=== PATIENT | female | born 1960 | race Caucasian/White ===

== ENCOUNTER 2017-04-25 00:10 | Emergency (ER) | payer OTHER ==
[2017-04-25] MEDS ORDERED: morphine CARPU-JECT 4 MG/1 ML DISP.SYRIN IVPUSH ONE ×2 (00:24→01:23)
--- NOTE | 2017-04-25 01:15 | PDOC ---
History of Present Illness - General Stated Complaint: LEG FRACTURE Time Seen by Provider: 04/25/17 00:23 History Source: Patient, EMS Exam Limitations: No Limitations - History of Present Illness Initial Comments: 04/25/17 00:37 The patient is a 56F with a PMH of DM who presents to the ED via EMS after fracturing her R leg. The patient states that she began to feel hypoglycemic as she was grabbing her juice and tripped over her dog. No LOC, no head trauma. On 81mg asa. EMS was called and they stated that they did not see any open fracture but there is a questionable lac on the distal leg. All: none Past History - Past Medical History Allergies/Adverse Reactions: Allergies Allergy/AdvReac Type Severity Reaction Status Date / Time No Known Allergies Allergy Verified 04/25/17 00:37 Home Medications: Ambulatory Orders Insulin Glargine,Hum.rec.anlog [Lantus Solostar PEN (NF)] 11 units SQ HS Insulin Lispro [Humalog] 8 - 11 unit SQ AC 04/25/17 Losartan Potassium 0 mg PO DAILY 04/25/17 Review of Systems - Review of Systems Able to Perform ROS?: Yes Is the patient limited Sri Lankan proficient: No Constitutional: Yes: Chills. No: Fever Respiratory: No: Shortness of Breath Cardiac (ROS): No: Chest Pain ABD/GI: Yes: Other (abd pain). No: Nausea, Vomiting Musculoskeletal: Yes: Joint Pain, Muscle Pain, Other (broken leg) Neurological: No: Numbness, Tingling, Weakness *Physical Exam - Physical Exam General Appearance: Yes: Nourished, Appropriately Dressed, Mild Distress HEENT: positive: Normal Voice, Hearing Grossly Normal Respiratory/Chest: positive: Lungs Clear, Normal Breath Sounds. negative: Chest Tender, Respiratory Distress, Accessory Muscle Use, Labored Respiration Cardiovascular: positive: Regular Rhythm, S1, S2, Tachycardia. negative: Diastolic Murmur, Systolic Murmur Vascular Pulses: Dorsalis-Pedis (R): 2+, Doralis-Pedis (L): 2+ Gastrointestinal/Abdominal: positive: Flat, Soft. negative: Tender Extremity: positive: Normal Capillary Refill, Normal Inspection, Other (R leg deviated laterally skilled nursing down leg). negative: Cyanosis, Swelling, Calf Tenderness Integumentary: positive: Dry, Warm, Other (5cmx1.5cm lac on distal leg, not at the same spot as fx) Neurologic: positive: Normal Response. negative: Numbness, Sensory Deficit ( Neurovascularly intact) Procedures - Splinting Splint Location: Right: Foot, Ankle, Knee Pre-Proc Neuro Vasc Exam: normal Hand-Made Type: orthoglass Splint Type: Yes: Long Leg Post-Proc Neuro Vasc Exam: normal Paul Bandage: 3", 4" Sling: No Post splint xray: Yes (CT) ED Treatment Course - LABORATORY CBC & Chemistry Diagram: 04/25/17 01:20 04/25/17 01:20 Medical Decision Making - Medical Decision Making 04/25/17 03:14 XR shows proximal fibular fracture and at least 1 fracture in mid-leg. Will do posterior splint and send to CT. 04/25/17 03:41 Posterior splint and u-splint placed. Will send to CT with 2 ativan for patient comfort. 04/25/17 04:05 Dr. Montes feels that this case should be transferred to a trauma center for an open fracture. Pending CT. 04/25/17 05:25 CT shows open fracture on preliminary read. [facility] has been contacted for transfer. 04/25/17 06:24 Transfer orders have been placed for [facility]. *DC/Admit/Observation/Transfer Diagnosis at time of Disposition: Fracture - Discharge Dispostion Disposition: TRANSFER ACUTE CARE/OTHER HOSP Condition at time of disposition: Stable Admit: Yes - Referrals Referrals: STAFF,NOT ON [Primary Care Provider] -
[2017-04-25] MEDS ORDERED: DEXTROSE 5%-0.45% SALINE 1,000 ML IV SCH (01:30)
[2017-04-25 01:33] LABS: EOSINOPHIL 3.2 % (0-4.5); MCH 32.6 pg (25.7-33.7); MCHC 33.8 g/dl (32.0-36.0); MEAN CELL VOLUME 96.5 fl (80-96); MEAN PLT VOLUME 9.7 fl (7.5-11.1); NEUTROPHILS 64.6 % (42.8-82.8); PLATELET COUNT 164 K/MM3 (134-434); RDW 13.3 % (11.6-15.6); WHITE BLOOD COUNT 5.4 K/mm3 (4.0-10.0)
--- NOTE | 2017-04-25 01:37 | PDOC ---
Attending Attestation - Resident Resident Name: Travis Lay - ED Attending Attestation I have performed the following: I have examined & evaluated the patient, The case was reviewed & discussed with the resident, I agree w/resident's findings & plan, Exceptions are as noted - HPI HPI: 04/28/17 19:34 Pt had a hypoglycemic event, resulting in a fall. Pt presents with pain and deformity to her right lower extremity. - Physicial Exam PE: 04/25/17 01:35 *Physical Exam General Appearance: Yes: Appropriately Dressed. No: Apparent Distress, Intoxicated HEENT: positive: EOMI, COLLIN, Normal ENT Inspection, Normal Voice, TMs Normal, Pharynx Normal. negative: Pale Conjunctivae, Photophobia, Scleral Icterus (R), Scleral Icterus (L) Neck: positive: Trachea midline, Normal Thyroid, Supple. negative: Tender, Rigid, Carotid bruit, Stridor, Lymphadenopathy (R), Lymphadenopathy (L), Thyromegaly Respiratory/Chest: positive: Lungs Clear, Normal Breath Sounds. negative: Chest Tender, Respiratory Distress, Accessory Muscle Use, Labored Respiration, RES, Crackles, Rales, Rhonchi, Stridor, Wheezing, Dullness Cardiovascular: positive: Regular Rhythm, Regular Rate, S1, S2. negative: Edema , JVD, Murmur, Bradycardia, Tachycardia Vascular Pulses: Dorsalis-Pedis (R): 2+, Doralis-Pedis (L): 2+ Gastrointestinal/Abdominal: positive: Normal Bowel Sounds, Flat, Soft. negative : Tender, Organomegaly, Pulsatile Mass, Increased Bowel Sounds, Decreased BS, Distended, Guarding, Rebound, Hernia, Hepatomegaly, Spleenomegaly Lymphatic: negative: Adenopathy, Tenderness Musculoskeletal: positive: Normal Inspection. negative: CVA Tenderness, Decreased Range of Motion Extremity: positive: deformity to right tib/fib region laterally Normal Capillary Refill, Normal Inspection, Normal Range of Motion, Pelvis Stable. negative: Tender, Pedal Edema, Swelling, Erythema Integumentary: positive: Normal Color, Dry, Warm. negative: Cyanotic, Erythema , Jaundice, Rash Neurologic: positive: forensic dna analyst II-XII NML intact, Fully Oriented, Alert, Normal Mood/ Affect, Motor Strength 5/5. negative: EOM Palsy, Facial Droop, Sensory Deficit - Medical Decision Making 04/25/17 05:54 Pt pending possible to [facility] as ortho believe that pt can't be treated here properly for surgical wash and treatmente of her open fracture to right tib/ fib. 04/25/17 06:18 Pt accepted to [facility] to go to ER by Dr. Valles. Discharge Disposition - Diagnosis Fracture, Open fracture, Fracture of right tibia and fibula - Discharge Dispostion Disposition: TRANSFER ACUTE CARE/OTHER HOSP Condition at time of disposition: Stable - Referrals Referrals: STAFF,NOT ON [Primary Care Provider] - - Transfer to Acute Care Facility Receiving Facility: [facility]. (accepted by Dr. Valles to ER)
[2017-04-25] MEDS ORDERED: HYDROmorphone HCL CARPU-JECT 1 MG/1 ML DISP.SYRIN ONE ×2 (01:39→03:21)
[2017-04-25 01:43] LABS: INR 0.91 (0.82-1.09)
[2017-04-25] MEDS ORDERED: HYDROmorphone HCL CARPU-JECT 1 MG/1 ML DISP.SYRIN IVPUSH ONE ×2 (01:47→03:11)
[2017-04-25 01:51] VITALS: BMI 25.7
[2017-04-25 01:55] LABS: ALBUMIN 3.4 g/dl (3.4-5.0); ALK PHOS 280 U/L (45-117); ANION GAP 9 (8-16); BILIRUBIN,TOTAL 0.2 mg/dL (0.2-1.0); CALCIUM 8.8 mg/dL (8.5-10.1); CO2 26 mmol/L (21-32); CREATININE 0.9 mg/dL (0.55-1.02); GLUCOSE,RANDOM 64 mg/dL (74-106); MAGNESIUM 2.4 mg/dL (1.8-2.4); SGOT/AST 96 U/L (15-37); SGPT/ALT 82 U/L (12-78); TOT PROT 6.3 g/dl (6.4-8.2)
[2017-04-25] MEDS ORDERED: DEXTROSE 50%-WATER - 25 GM/50 ML VIAL IVPUSH ONE (02:08)
[2017-04-25] MEDS ORDERED: AMPICILLIN NA/SULBACTAM NA 3 GM in SODIUM CHLORIDE 100 ML IVPB ONE (03:11)
[2017-04-25] MEDS ORDERED: morphine CARPU-JECT 4 MG/1 ML DISP.SYRIN IVPUSH PRN (04:05)
[2017-04-25] MEDS ORDERED: DIPHTH,PERTUSS(ACELL),TET 0.5 ML DISP.SYRIN IM ONE (04:07)
--- NOTE | 2017-04-25 04:08 | HP ---
Admitting History and Physical - Admission History of Present Illness: 56yo F with significant history of DM on insulin presenting to the ER with R leg fracture with laceration on distal part of leg. Pt was experiencing a hypoglycemic episode when she went to go get juice from her fridge. She subsequently tripped on her dog and, when she landed, had a gross deformity of her R leg. Pt did not loose consciousness, did not hit her head, and denies any urinary incontinence or post-ictal state. Pt is currently in posterior/u-splint and states she was able to move her toes when asked to do so. Pt denies any other symptoms. ER course notable for: 1) Lower extremity XR - Multiple fractures in R fibula and Tibia fx; official read pending 2) Posterior splint and U-splint applied 3) Ampicillin x1 dose given due to laceration 4) CMP revealing elevated liver enzymes 5) Glucose of 64, D5 initiated 6) Ortho consulted History Source: Patient Limitations to Obtaining History: No Limitations - Past Medical History Endocrine: Yes: Diabetes Mellitus - Smoking History Smoking history: Former smoker Have you smoked in the past 12 months: No If you are a former smoker, when did you quit?: 25 years ago - Alcohol/Substance Use Hx Alcohol Use: Yes (socially) - Social History History of Recent Travel: No Home Medications - Allergies Allergies/Adverse Reactions: Allergies Allergy/AdvReac Type Severity Reaction Status Date / Time No Known Allergies Allergy Verified 04/25/17 00:37 - Home Medications Home Medications: Ambulatory Orders Insulin Glargine,Hum.rec.anlog [Lantus Solostar PEN (NF)] 11 units SQ HS Insulin Lispro [Humalog] 8 - 11 unit SQ AC 04/25/17 Losartan Potassium 0 mg PO DAILY 04/25/17 Physical Examination Vital Signs: Vital Signs Temperature Pulse Rate 83 04/25/17 00:30 Respiratory Rate 18 04/25/17 00:30 Blood Pressure 146/79 04/25/17 00:30 O2 Sat by Pulse Oximetry (%) 99 04/25/17 00:30 Constitutional: Yes: Mild Distress Eyes: Yes: Conjunctiva Clear, EOM Intact, PERRL Neck: Yes: Trachea Midline Cardiovascular: Yes: Tachycardia (regular rhythm), S1, S2. No: Murmur Respiratory: Yes: Regular, CTA Bilaterally. No: Rales, Rhonchi, SOB, Wheezes Gastrointestinal: Yes: Normal Bowel Sounds, Soft. No: Hepatomegaly, Splenomegaly, Tenderness Extremities: Yes: Other (R lower extremity in immobilizer cast; per ER able to move distal extremities; sensation intact distally; per ER distal pulses intact and laceration about 4x1cm distal to fractures on leg seen on XR) Neurological: Yes: Alert, Oriented Psychiatric: Yes: Alert, Oriented Labs: CBC, BMP 04/25/17 01:20 04/25/17 01:20 Assessment/Plan 56yo F sig hx of insulin dependent DM experiencing hypoglycemic episode resulting in multiple fractures of R fibula with a Tibia Fx. Immobilizer cast applied, D5 in ER given for hypoglycemia, ampicillin x1dose given; open laceration 4x1cm 1) R fibular and R Tibia fracture --Open laceration 4x1 distal to fractures seen on XR --Ortho consulted --Pain management: received dilaudid in ER for multiple doses; Morphine Injection 4mg q4 PRN --Most likely will need surgical intervention for closure of laceration and fractures; defer to ortho team --CT lower extremity revealing open fracture of tibia and fibula; official read pending 2) IDDM --Levemir 17U HS --Novolog 5U TID boluses --SSI for inbetween coverage if necessary --BGM ACHS --Will give 8 of Levemir in morning due to lack of taking medication tonight and NPO for possible procedure tomorrow 3) Elevated liver enzymes --Suspect patient drinks alcohol more than described as "socially" --No abd tenderness or hepatomegaly --Will f/u; eventually need Liver US FEN: Fluids: D5W for hypoglycemia, will switch to NS when at adequate levels Electrolyte abnormalities: None Nutrition: NPO for possible procedure Dispo: Admit to M/S; follow with ortho plan Visit type - Emergency Visit Emergency Visit: Yes Care time: The patient presented to the Emergency Department on the above date and was hospitalized for further evaluation of their emergent condition. - New Patient This patient is new to me today: Yes Date on this admission: 04/25/17 - Critical Care Critical Care patient: No
--- NOTE | 2017-04-25 05:44 | PN ---
Teaching Attending Note Name of Resident: Ryan Russell ATTENDING PHYSICIAN STATEMENT I saw and evaluated the patient. I reviewed the resident's note and discussed the case with the resident. I agree with the resident's findings and plan as documented. SUBJECTIVE: 56 yo female admitted to general medical floor with multiple acute tib/fib fractures following a fall at home patient attributes to "hypoglycemia episode" . Denies syncope or presyncope symptomatology, denies CP, palpitations, SOB, abdominal pain, GI or complaints. OBJECTIVE: - Vital Signs BP: 146/79 HR: 83 RR: 18 spO2: 99% on RA - Physical Examination General: Mild distress, depressed sensorium in setting of multiple opioid doses in ED HEENT: Atraumatic, no oropharyngeal lesions Neck: No JVD or thyromegaly CV: RRR, S1 and S2 Pulm: CTA anteriorly Abd: Soft, NTTP, ND, BS+ ; No hepatomegaly appreciated Ext: Obvious deformity to RLE w/ splint in place - Imaging RLE Radiographs reviewed CXR reviewed - Labs BUN/Cr: 29/0.9 H/H 10.9/32.3 w/ macrocytic profile ; Plt 164 AST/ALT 96/82 , ALP 280 , Laila bili ASSESSMENT: s/p Traumatic fall w/ subsequent tib/fib fractures and laceration Acute Transaminitis Macrocytic Anemia Pre-renal Azotemia Insulin Dependent DM-II Essential - Controlled PLAN: Admit to med/surg floor for IV pain management while awaiting Orthopedic Surgery evaluation. Basal and SSI while inpatient, Monitor for hypoglycemia ; Continue outpatient BP regimen IVF hydration overnight w/ LR Pain management w/ PO opiate standing and IV Morphine q2h prn Order GGT ; Serum EtOH level ; UDS and UA Order Abdominal U/S w/ doppler Check B12, Folate, Fe levels, reticulocyte indices DVT PPx w/ SC Heparin DISPOSITION: Anticipate discharge in >48h once orthopedics has evaluated/treated and PT/OT evaluation has been completed.
[2017-04-25] MEDS ORDERED: Insulin (LOG) Aspart 100 UNITS/ML VIAL SQ SCH ×2 (06:00→07:00)
[2017-04-25 06:22] VITALS: BP 141/90; PULSE 95; TEMP 98.4
[2017-04-25] MEDS ORDERED: INSULIN (NOVOLOG) ASPART 100 UNITS/ML 10ML VIAL ONE (06:50)
[2017-04-25] MEDS ORDERED: morphine CARPU-JECT 4 MG/1 ML DISP.SYRIN ONE (06:56)
[2017-04-25] MEDS ORDERED: INSULIN SLIDING SCALE (NOVOLOG) 1 VIAL SQ SCH (07:00)
[2017-04-25] MEDS ORDERED: INSULIN DETEMIR 100 UNITS/ML MDV SQ ONE (09:00)
[2017-04-25] MEDS ORDERED: HEPARIN NA (PORCINE) 5,000 UNITS/ML 1ML VIAL SQ SCH (10:00)
[2017-04-25] MEDS ORDERED: INSULIN DETEMIR 100 UNITS/ML MDV SQ SCH (22:00)
== END 2017-04-25 07:15 | disposition short-term general hospital (02) ==
LOC: JER 00:10 → UNDOADMIN 03:42 → JERBED 03:42 → UNDOADMIN 03:48 → JERBED 03:48 → JER 07:15
PROC: 2W3LX1Z Immobilization of Right Lower Extremity using Splint (ICD-10-PCS; principal; 2017-04-25)
PROC: 3E033NZ Introduction of Analgesics, Hypnotics, Sedatives into Peripheral Vein, Percutaneous Approach (ICD-10-PCS; 2017-04-25)
PROC: 3E03329 Introduction of Other Anti-infective into Peripheral Vein, Percutaneous Approach (ICD-10-PCS; 2017-04-25)
PROC: 3E033GC Introduction of Other Therapeutic Substance into Peripheral Vein, Percutaneous Approach (ICD-10-PCS; 2017-04-25)
PROC: 3E013VG Introduction of Insulin into Subcutaneous Tissue, Percutaneous Approach (ICD-10-PCS; 2017-04-25)
PROC: 3E0234Z Introduction of Serum, Toxoid and Vaccine into Muscle, Percutaneous Approach (ICD-10-PCS; 2017-04-25)
DX: S82.831B Other fracture of upper and lower end of right fibula, initial encounter for open fracture type I or II (principal); S82.391B Other fracture of lower end of right tibia, initial encounter for open fracture type I or II; W01.0XXA Fall on same level from slipping, tripping and stumbling without subsequent striking against object, initial encounter; Y93.89 Activity, other specified; Y92.000 Kitchen of unspecified non-institutional (private) residence as the place of occurrence of the external cause; E11.9 Type 2 diabetes mellitus without complications; Z79.4 Long term (current) use of insulin
CPT/HCPCS: 29505; 36415; 71010-TC; 73590-TC-RT; 73610-TC-RT; 73630-TC-RT; 73700-TC-RT; 80053; 83735; 85025; 85610; 86850; 86900; 86901; 90471; 90715; 96365; 96372; 96375; 96376; 99285-25

== ENCOUNTER 2017-12-09 07:32 | Observation (INO) | payer OTHER ==
--- NOTE | 2017-12-09 08:03 | PDOC ---
History of Present Illness - General Chief Complaint: Weakness Stated Complaint: weakness Time Seen by Provider: 12/09/17 07:33 History Source: Patient Exam Limitations: No Limitations - History of Present Illness Initial Comments: 12/09/17 07:48 The patient is a 57F with a PMH of HTN and DM who presents to the ER after having an episode of hypoglycemia. The patient states that she woke up around 0600 this morning and felt shaky with slurred speech. She states that she's had episodes of hypoglycemia in the past but none like this one. She states that she last felt well around 0988-1526 this morning. When she woke up at 0600, she did not feel right and had slurred speech. She sat up in bed and checked her BG and it was 66. She ate a sandwich and drank orange juice and felt better. EMS had 108 BG then repeat was 227. She states her symptoms have completely resolved and she is fine. tPA Exclusion Checklist 0-3hr - Time Elapsed Date last known well: 12/09/17 Time last known well: 02:00 Elaspsed time: Day(s) and 10 Hour(s) and 16 Minutes - Thrombolytic Therapy Candidate Is the patient eligible for Thrombolytic Therapy?: No - Exclusion Criteria 0-3hr SBP greater than 185 or DBP greater than 110mmHg despite tx: No Recent IC/spinal surgery,head trauma or stroke w/in last 3mo: No Hx of previous IC hemorrhage, IC neoplasm, AVM or aneurysm: No Active internal bleeding: No Blding diathesis(low plt ct, inc PTT,INR>1.7 or use of NOAC): No Symptoms suggest subarachnoid hemorrhage: No CT demonstrates multilobar infarct(>1/3 cerebral hemiphere): No Arterial puncture at noncompressible site in previous 7 days: No Blood glucose concentration less than 50mg/dL (2.7mmol/L): No - Relative Exclusion Criteria 0-3h Life expectancy <1yr/severe co-morbid illness/FIELD SERVICER on admit: No : No Patient/family refused: No Rapid improvement: Yes Stroke severity too mild: Yes Recent acute DE (w/in previous 3 months): No Seizure at onset with postictal residual neuro impairments: No Major surgery or serious trauma w/in previous 14 days: No Recent GI or hemorrhage (w/in previous 21 days): No - Ineligibility reason(s) Reasons No tPA given: See reason(s) noted above (Symptoms have completely resolved and out of TPA window) NIH Stroke Scale - Last Known Well Date/Time & Onset Date Last Known Well: 12/09/17 Time Last Known Well: 02:00 - Initial Evaluation Level of consciousness: Alert Ask patient the month and their age: Answers both correctly Ask patient to open & close eyes; make fist and let go: Obeys both correctly Best gaze (horizontal eye movement): Normal Visual field testing: No visual field loss Facial paresis (Show teeth/raise eyebrows/close eyes tight): Normal symmetrical movement Motor Function: Left Arm: Normal Motor Function: Right Arm: Normal (extends arm 90 (or 45) degrees for 10 seconds without drift Motor Function: Left Leg: Normal (extends leg 30 degrees for 5 seconds without drift) Motor Function: Right Leg: Normal (extends leg 30 degrees for 5 seconds without drift) Limb Ataxia: No ataxia Sensory(Use pinprick test arms,legs,trunk,face/side to side): Normal Best language (Describe picture, name items, read sentences): No Aphasia Dysarthria (read several words): Normal articulation Extinction and Inattention: No abnormality - Total Score NIH Stroke Scale Score: 0 Past History - Past Medical History Allergies/Adverse Reactions: Allergies Allergy/AdvReac Type Severity Reaction Status Date / Time No Known Allergies Allergy Verified 12/09/17 07:45 Home Medications: Ambulatory Orders Insulin Glargine,Hum.rec.anlog [Lantus Solostar PEN (NF)] 11 units SQ HS Insulin Lispro [Humalog] 0 unit SQ AC 04/25/17 Losartan Potassium 25 mg PO DAILY 12/09/17 Anemia: No Asthma: No Cancer: No Cardiac Disorders: No CVA: No COPD: No DVT: No Dementia: No Diabetes: Yes Dialysis: No GI Disorders: No Disorders: No HTN: Yes Hypercholesterolemia: No Kidney Stones: No Liver Disease: No Psychiatric Problems: No Seizures: No Thyroid Disease: No Lung CA: No - Surgical History Abdominal Surgery: No Appendectomy: No Cardiac Surgery: No Cholecystectomy: No Gastric Stapling: No GI Surgery: No Lung Surgery: No Neurologic Surgery: No - Suicide/Smoking/Psychosocial Hx Smoking History: Former smoker Have you smoked in the past 12 months: No If you are a former smoker, when did you quit?: 25 years ago Hx Alcohol Use: Yes (socially) Drug/Substance Use Hx: No Substance Use Type: Alcohol Review of Systems - Review of Systems Able to Perform ROS?: Yes Comments:: 12/09/17 08:46 GENERAL/CONSTITUTIONAL: No fever or chills. No weakness. HEAD, EYES, EARS, NOSE AND THROAT: No change in vision. No ear pain or discharge. No sore throat. CARDIOVASCULAR: No chest pain, palpitations, or lightheadedness. RESPIRATORY: No cough, wheezing, shortness of breath, or hemoptysis. GASTROINTESTINAL: No nausea, vomiting, diarrhea, constipation, or abdominal pain. GENITOURINARY: No dysuria, frequency, hematuria, or change in urination. MUSCULOSKELETAL: No joint or muscle swelling or pain. No neck or back pain. SKIN: No rash or lesions. NEUROLOGIC: Positive for shakiness and resolved slurred speech. No headache, numbness, tingling, weakness, loss of consciousness, or change in strength/ sensation. ENDOCRINE: No increased thirst. No abnormal weight change. HEMATOLOGIC/LYMPHATIC: No anemia, easy bleeding, or history of blood clots. ALLERGIC/IMMUNOLOGIC: No hives or skin allergy. Is the patient limited Bur[place]ian proficient: No *Physical Exam - Physical Exam Comments: 12/09/17 08:46 GENERAL: Well developed, well nourished. Awake and alert. No acute distress. HEENT: Normocephalic, atraumatic. Hearing grossly normal. Moist mucous membranes. PERRLA, EOMI. No conjunctival pallor. Sclera are non-icteric. Oropharynx is clear. NECK: Supple. Full ROM. No JVD. CARDIOVASCULAR: Regular rate and rhythm. No murmurs, rubs, or gallops. PULMONARY: No evidence of respiratory distress. Lungs clear to auscultation bilaterally. No wheezing, rales or rhonchi. ABDOMINAL: Soft. Non-tender. Non-distended. No rebound or guarding. GENITOURINARY: No CVA tenderness bilaterally. MUSCULOSKELETAL: Normal range of motion at all joints. No bony deformities or tenderness. EXTREMITIES: No cyanosis. No clubbing. No edema. No calf tenderness. SKIN: Warm and dry. Normal capillary refill. No rashes. No jaundice. NEUROLOGICAL: Alert, awake, appropriate. Cranial nerves 2-12 intact. No deficits to light touch and temperature in face, upper extremities and lower extremities. No motor deficits in the in face, upper extremities and lower extremities. Finger to nose normal bilaterally. Normal speech. Gait is normal without ataxia. PSYCHIATRIC: Cooperative. Good eye contact. Appropriate mood and affect. ED Treatment Course - LABORATORY CBC & Chemistry Diagram: 12/09/17 08:12 12/09/17 08:12 Medical Decision Making - Medical Decision Making 12/09/17 08:47 The patient is a 57F with a PMH of DM and HTN who presents after a questionable hypoglycemic vs TIA episode. Due to the unclear picture and delayed arrival, the patient was not a candidate for a code briceno activation. Her symptoms have totally resolved and is not a candidate for TPA with an NIHSS of 0. However, will follow stroke protocol and admit for stroke/TIA workup. 12/09/17 12:[address] head negative. I have endorsed the patient to Dr. Maria for admission for Dr. Garcia. Will go to stroke obs floor. *DC/Admit/Observation/Transfer Diagnosis at time of Disposition: TIA (transient ischemic attack) Qualifiers: Transient cerebral ischemia type: unspecified Qualified Code(s): G45.9 - Transient cerebral ischemic attack, unspecified - Discharge Dispostion Condition at time of disposition: Stable Admit: Yes - Referrals - Patient Instructions - Post Discharge Activity
[2017-12-09 08:08] VITALS: BMI 24.3
[2017-12-09] MEDS ORDERED: SODIUM CHLORIDE 1,000 ML IV SCH ×2 (08:15→14:30)
[2017-12-09 08:30] LABS: BASO % 0.3 % (0-2.0); EOS % 0.2 % (0-4.5); HEMOGLOBIN 10.9 GM/dL (10.7-15.3); LYMPH % 10.6 % (8-40); MCH 31.8 pg (25.7-33.7); MEAN CELL VOLUME 93.6 fl (80-96); MEAN PLT VOLUME 10.1 fl (7.5-11.1); MONO % 8.8 % (3.8-10.2); NEUT % 80.1 % (42.8-82.8); PLATELET COUNT 162 K/MM3 (134-434); RBC 3.42 M/mm3 (3.60-5.2); RDW 13.2 % (11.6-15.6); WHITE BLOOD COUNT 7.1 K/mm3 (4.0-10.0)
[2017-12-09 08:34] LABS: URINE APPEARANCE SLCLOUDY; URINE BILIRUBIN NEGATIVE (<2.0 mg/dL); URINE BLOOD NEGATIVE (NEGATIVE); URINE COLOR LTYELLOW; URINE GLUCOSE (UA) 3+ (NEGATIVE); URINE KETONE TRACE (NEGATIVE); URINE NITRITE NEGATIVE (NEGATIVE); URINE PROTEIN NEGATIVE (NEGATIVE); URINE UROBILINOGEN NEGATIVE mg/dL (0.2-1.0)
[2017-12-09 08:50] LABS: URINE LEUK ESTERASE 2+ (NEGATIVE)
[2017-12-09 08:56] LABS: EPI CELLS FEW /HPF (FEW); URINE BACTERIA RARE /hpf (NONE SEEN); URINE HYALINE CAST 9 /lpf; URINE MUCUS RARE
[2017-12-09 09:01] LABS: ALBUMIN 3.4 g/dl (3.4-5.0); ANION GAP 10 (8-16); BILIRUBIN,TOTAL 0.3 mg/dL (0.2-1.0); BLOOD UREA NITROGEN 34 mg/dL (7-18); CALCIUM 8.1 mg/dL (8.5-10.1); CHLORIDE 100 mmol/L (98-107); CO2 25 mmol/L (21-32); CREATININE 1.3 mg/dL (0.55-1.02); SGOT/AST 79 U/L (15-37); SGPT/ALT 122 U/L (12-78); SODIUM 135 mmol/L (136-145); TOT PROT 6.3 g/dl (6.4-8.2)
[2017-12-09 09:02] LABS: ALK PHOS 429 U/L (45-117)
[2017-12-09 09:16] LABS: GLUCOSE,RANDOM 363 mg/dL (74-106)
[2017-12-09] MEDS ORDERED: INSULIN REGULAR HUMAN 100 UNITS/ML *VIAL SQ ONE (09:21)
[2017-12-09 09:42] LABS: INR 0.89 (0.82-1.09); PROTHROMBIN TIME (PATIENT) 10.1 SEC (9.98-11.88)
[2017-12-09 09:48] LABS: CHOLESTEROL 180 mg/dL (50-200); LDL CHOLESTEROL (ONLY SJRH) 80 mg/dL (5-100)
[2017-12-09 09:50] LABS: HDL CHOLESTEROL 72 mg/dL (40-60); TRIGLYCERIDES 191 mg/dL (35-160)
[2017-12-09] MEDS ORDERED: INSULIN REGULAR HUMAN 100 UNITS/ML *VIAL ONE ×2 (10:01→13:29)
--- NOTE | 2017-12-09 10:20 | PDOC ---
Attending Attestation - Resident Resident Name: MartykazmanuelaTravis - ED Attending Attestation I have performed the following: I have examined & evaluated the patient, The case was reviewed & discussed with the resident, I agree w/resident's findings & plan, Exceptions are as noted - HPI HPI: 12/09/17 10:17 57-year-old female with history of insulin-dependent diabetes presents with about 30 minute episode of slurred speech upon awakening at 6 AM. The patient was at her baseline at 2 AM after going to sleep around midnight, awoke at 6 AM with severely slurred speech but no aphasia or focal weakness. Her glucose at that time was 60 so she started drinking some orange juice, by the time EMS arrived it was 108 and her symptoms were improving. Typically, patient states she is not symptomatic at glucose levels of 60, and she has never had slurred speech with her hypoglycemia in the past. Now feels completely back to normal. - Physicial Exam PE: 12/09/17 10:18 Vital signs normal NEURO: Mental status: The patient is alert and oriented x3. Cranial nerves: Cranial nerves II through XII are intact Motor: The upper extremities are 5 over 5 in all muscle groups. The lower extremities are 5 over 5 in all muscle groups. No pronator drift. Sensation: Sensation is intact to light touch throughout. Cerebellar: [id number] is normal in both upper extremities. Heel-knee- perez is normal in both lower extremities. Reflexes: 2+ and symmetric in the upper and lower extremities. Gait: Normal. Heel and toe walking are normal. Tandem gait is normal. - Medical Decision Making 12/09/17 10:18 Patient seen and evaluated with the resident. I agree with the overall evaluation, assessment, and management with the following summary of visit: 57-year-old female with insulin-dependent diabetes presents with a hypoglycemic episode versus TIA. Given persistent symptoms despite relatively normal glucose levels, more concerning for TIA. Stroke protocol initiated Will admit for further neurological/stroke workup Heart Score/ECG Review #1 ECG reviewed & interpreted by me at: 10:21 General ECG Interpretation: Sinus Rhythm, Normal Rate (96), Normal Intervals ( qtc 447), No acute ischemic changes Compared to previous ECG there are: Previous ECG unavail
--- NOTE | 2017-12-09 11:41 | EKG ---
Test Reason : Blood Pressure : / mmHG Vent. Rate : 096 BPM Atrial Rate : 096 BPM P-R Int : 148 ms QRS Dur : 072 ms QT Int : 354 ms P-R-T Axes : 049 024 041 degrees QTc Int : 447 ms NORMAL SINUS RHYTHM POSSIBLE LEFT ATRIAL ENLARGEMENT ANTEROSEPTAL INFARCT , AGE UNDETERMINED ABNORMAL ECG NO PREVIOUS ECGS AVAILABLE Confirmed by Nikita Prather MD ([id number]) on 12/09/2017 11:41:10 AM Referred By: Confirmed By:Nikita Prather MD
--- NOTE | 2017-12-09 14:21 | HP ---
Admitting History and Physical - Admission Chief Complaint: came in for hypoglycemia and slurred speech History of Present Illness: The patient is a 57F with a PMH of HTN and DM who presents to the ER after having an episode of hypoglycemia. The patient states that she woke up around 0600 this morning and felt shaky with slurred speech. She states that she's had episodes of hypoglycemia in the past but none like this one. She states that she last felt well around [id number] this morning. When she woke up at 0600, she did not feel right and had slurred speech. She sat up in bed and checked her BG and it was 66. She ate a sandwich and drank orange juice and felt better . EMS had 108 BG then repeat was 227. She states her symptoms have completely resolved and she is fine. History Source: Patient - Past Medical History Cardiovascular: Yes: HTN Endocrine: Yes: Diabetes Mellitus - Past Surgical History Additional Past Surgical History: has a titanium isauro on leg - Smoking History Smoking history: Former smoker Have you smoked in the past 12 months: No If you are a former smoker, when did you quit?: 25 years ago - Alcohol/Substance Use Hx Alcohol Use: Yes (socially) - Social History History of Recent Travel: No Home Medications - Allergies Allergies/Adverse Reactions: Allergies Allergy/AdvReac Type Severity Reaction Status Date / Time No Known Allergies Allergy Verified 12/09/17 07:45 - Home Medications Home Medications: Ambulatory Orders Insulin Glargine,Hum.rec.anlog [Lantus Solostar PEN (NF)] 11 units SQ HS Insulin Lispro [Humalog] 0 unit SQ AC 04/25/17 Losartan Potassium 25 mg PO DAILY 12/09/17 Review of Systems - Review of Systems Constitutional: reports: No Symptoms Eyes: reports: No Symptoms HENT: reports: No Symptoms Neck: reports: No Symptoms Cardiovascular: reports: No Symptoms Respiratory: reports: No Symptoms Gastrointestinal: reports: No Symptoms Physical Examination Vital Signs: Vital Signs Temperature 97.7 F 12/09/17 07:45 Pulse Rate 99 H 12/09/17 07:45 Respiratory Rate 16 12/09/17 07:45 Blood Pressure 174/79 12/09/17 07:45 O2 Sat by Pulse Oximetry (%) 98 12/09/17 08:26 Labs: CBC, BMP 12/09/17 08:12 12/09/17 08:12 Imaging - Results Cat Scan: Report Reviewed Problem List - Problems (1) TIA (transient ischemic attack) Assessment/Plan: neurology eval carotid doppler has titanium isauro in leg Code(s): G45.9 - TRANSIENT CEREBRAL ISCHEMIC ATTACK, UNSPECIFIED Qualifiers: Transient cerebral ischemia type: unspecified Qualified Code(s): G45.9 - Transient cerebral ischemic attack, unspecified (2) Diabetes Assessment/Plan: [id number] bgm lipid profile Code(s): E11.9 - TYPE 2 DIABETES MELLITUS WITHOUT COMPLICATIONS Qualifiers: Diabetes mellitus type: type 2 (3) HTN (hypertension) Assessment/Plan: losaratan 50mg Code(s): I10 - ESSENTIAL (PRIMARY) HYPERTENSION
[2017-12-09] MEDS ORDERED: LOSARTAN POTASSIUM 25 MG TABLET ONE (17:58)
[2017-12-09] MEDS: LOSARTAN POTASSIUM 50 MG TABLET (FP) PO SCH (18:00)
[2017-12-09] MEDS: INSULIN SLIDING SCALE (NOVOLOG) 1 VIAL SQ SCH ×2 (18:24→21:24)
[2017-12-09] MEDS ORDERED: oxyCODONE HCL 5 MG TABLET PO ONE (21:07)
[2017-12-09] MEDS ORDERED: INSULIN (NOVOLOG) ASPART 100 UNITS/ML 10ML VIAL ONE (21:19)
[2017-12-09] MEDS: HEPARIN NA (PORCINE) 5,000 UNITS/ML 1ML VIAL SQ SCH (21:25)
[2017-12-09] MEDS ORDERED: INSULIN DETEMIR 100 UNITS/ML MDV SQ SCH (22:00)
[2017-12-09] MEDS ORDERED: ATORVASTATIN CA 10 MG TABLET (FP) PO SCH (22:00)
[2017-12-10] MEDS ORDERED: INSULIN SLIDING SCALE (NOVOLOG) 1 VIAL SQ SCH ×2 (02:50→22:00)
--- NOTE | 2017-12-10 02:56 | CONSULT ---
Consult Consult Specialty:: ENDOCRINE Referred by:: RENA ABDI MD Reason for Consultation:: DIABETES MELLITUS - History of Present Illness Chief Complaint: LOW SUGAR WITH UNAWARENESS History of Present Illness: 57F with a PMH of HTN and DM who presents to the ER after having an episode of hypoglycemia. The patient states that she woke up around 0600 this morning and felt shaky with slurred speech. She states that she's had episodes of hypoglycemia in the past but none like this one. She states that she remember checking and taking less insulin night before waking up with low sugar 2- 3 am feeling weak,and diaphoretic bs 60 brought to er with bs improved to 108mg /dl - History Source History Provided By: Patient - Past Medical History Cardio/Vascular: Yes: HTN ...: No Endocrine: Yes: Diabetes Mellitus - Alcohol/Substance Use Hx Alcohol Use: No (socially) - Smoking History Smoking history: Former smoker Have you smoked in the past 12 months: No If you are a former smoker, when did you quit?: 25 YEARS AGO - Social History History of Recent Travel: No Home Medications - Allergies Allergies/Adverse Reactions: Allergies Allergy/AdvReac Type Severity Reaction Status Date / Time No Known Allergies Allergy Verified 12/09/17 07:45 - Home Medications Home Medications: Ambulatory Orders Insulin Glargine,Hum.rec.anlog [Lantus Solostar PEN (NF)] 11 units SQ HS Insulin Lispro [Humalog] 0 unit SQ AC 04/25/17 Losartan Potassium 25 mg PO DAILY 12/09/17 Review of Systems - Review of Systems Constitutional: reports: Weakness Eyes: reports: Blurred Vision HENT: reports: No Symptoms Neck: reports: No Symptoms Cardiovascular: reports: No Symptoms Respiratory: reports: Exercise Intolerance, SOB on Exertion Gastrointestinal: reports: Bloating Genitourinary: reports: No Symptoms Breasts: reports: No Symptoms Reported Musculoskeletal: reports: Muscle Weakness Integumentary: reports: No Symptoms Neurological: reports: Weakness Endocrine: reports: Unexplained Weight Loss Physical Exam Vital Signs: Vital Signs Temperature 98.6 F 12/09/17 21:00 Pulse Rate 92 H 12/09/17 21:00 Respiratory Rate 18 12/09/17 21:00 Blood Pressure 150/71 12/09/17 21:00 O2 Sat by Pulse Oximetry (%) 98 12/09/17 22:19 Constitutional: Yes: Anxious Eyes: Yes: EOM Intact HENT: Yes: Normocephalic Neck: Yes: Trachea Midline Cardiovascular: Yes: Regular Rate and Rhythm Respiratory: Yes: CTA Bilaterally Gastrointestinal: Yes: Normal Bowel Sounds ...Rectal Exam: Yes: Deferred Renal/: Yes: WNL Musculoskeletal: Yes: WNL Extremities: Yes: WNL Neurological: Yes: Alert, Oriented Labs: CBC, BMP 12/09/17 08:12 12/09/17 08:12 Problem List - Problems (1) Diabetes Code(s): E11.9 - TYPE 2 DIABETES MELLITUS WITHOUT COMPLICATIONS Qualifiers: Diabetes mellitus type: type 2 (2) HTN (hypertension) Code(s): I10 - ESSENTIAL (PRIMARY) HYPERTENSION (3) TIA (transient ischemic attack) Code(s): G45.9 - TRANSIENT CEREBRAL ISCHEMIC ATTACK, UNSPECIFIED Qualifiers: Transient cerebral ischemia type: unspecified Qualified Code(s): G45.9 - Transient cerebral ischemic attack, unspecified Assessment/Plan Current Active Problems Diabetes (Acute) HTN (hypertension) (Acute) TIA (transient ischemic attack) (Acute) hypoglycemia dm neuropathy Abnormal Lab Results 12/09/17 12/09/17 12/09/17 07:34 08:12 08:12 RBC 3.42 L Hct 32.0 L Sodium 135 L BUN 34 H Creatinine 1.3 H Random Glucose 363 H* Calcium 8.1 L AST 79 H ALT 122 H Alkaline Phosphatase 429 H Total Protein 6.3 L Triglycerides HDL Cholesterol Urine Glucose (UA) 3+ H Urine Ketones Trace H Ur Leukocyte Esterase 2+ H 12/09/17 09:25 RBC Hct Sodium BUN Creatinine Random Glucose Calcium AST ALT Alkaline Phosphatase Total Protein Triglycerides 191 H HDL Cholesterol 72 H Urine Glucose (UA) Urine Ketones Ur Leukocyte Esterase Laboratory Results - last 24 hr 12/09/17 12/09/17 12/09/17 07:34 08:12 08:12 WBC 7.1 D RBC 3.42 L Hgb 10.9 Hct 32.0 L MCV 93.6 MCH 31.8 MCHC 34.0 RDW 13.2 Plt Count 162 MPV 10.1 Neutrophils % 80.1 D Lymphocytes % 10.6 D Monocytes % 8.8 Eosinophils % 0.2 D Basophils % 0.3 PT with INR INR Sodium 135 L Potassium 5.0 Chloride 100 Carbon Dioxide 25 Anion Gap 10 BUN 34 H Creatinine 1.3 H Creat Clearance w eGFR 42.22 POC Glucometer Random Glucose 363 H* Calcium 8.1 L Total Bilirubin 0.3 D AST 79 H ALT 122 H Alkaline Phosphatase 429 H Creatine Kinase Troponin I Total Protein 6.3 L Albumin 3.4 Triglycerides Cholesterol Total LDL Cholesterol HDL Cholesterol Urine Color Ltyellow Urine Appearance Slcloudy Urine pH 5.0 Ur Specific [place] 1.015 Urine Protein Negative Urine Glucose (UA) 3+ H Urine Ketones Trace H Urine Blood Negative Urine Nitrite Negative Urine Bilirubin Negative Urine Urobilinogen Negative Ur Leukocyte Esterase 2+ H Urine WBC (Auto) 14 Urine RBC (Auto) 5 Ur Epithelial Cells Few Urine Bacteria Rare Hyaline Casts 9 Urine Mucus Rare Blood Type Antibody Screen 12/09/17 12/09/17 12/09/17 09:25 09:25 09:25 WBC RBC Hgb Hct MCV MCH MCHC RDW Plt Count MPV Neutrophils % Lymphocytes % Monocytes % Eosinophils % Basophils % PT with INR 10.10 INR 0.89 Sodium Potassium Chloride Carbon Dioxide Anion Gap BUN Creatinine Creat Clearance w eGFR POC Glucometer Random Glucose Calcium Total Bilirubin AST ALT Alkaline Phosphatase Creatine Kinase 46 Troponin I < 0.02 Total Protein Albumin Triglycerides 191 H Cholesterol 180 Total LDL Cholesterol 80 HDL Cholesterol 72 H Urine Color Urine Appearance Urine pH Ur Specific [place] Urine Protein Urine Glucose (UA) Urine Ketones Urine Blood Urine Nitrite Urine Bilirubin Urine Urobilinogen Ur Leukocyte Esterase Urine WBC (Auto) Urine RBC (Auto) Ur Epithelial Cells Urine Bacteria Hyaline Casts Urine Mucus Blood Type O POSITIVE Antibody Screen Negative 12/09/17 12/09/17 13:26 21:13 WBC RBC Hgb Hct MCV MCH MCHC RDW Plt Count MPV Neutrophils % Lymphocytes % Monocytes % Eosinophils % Basophils % PT with INR INR Sodium Potassium Chloride Carbon Dioxide Anion Gap BUN Creatinine Creat Clearance w eGFR POC Glucometer [phone] Random Glucose Calcium Total Bilirubin AST ALT Alkaline Phosphatase Creatine Kinase Troponin I Total Protein Albumin Triglycerides Cholesterol Total LDL Cholesterol HDL Cholesterol Urine Color Urine Appearance Urine pH Ur Specific [place] Urine Protein Urine Glucose (UA) Urine Ketones Urine Blood Urine Nitrite Urine Bilirubin Urine Urobilinogen Ur Leukocyte Esterase Urine WBC (Auto) Urine RBC (Auto) Ur Epithelial Cells Urine Bacteria Hyaline Casts Urine Mucus Blood Type Antibody Screen Laboratory Tests 12/09/17 12/09/17 12/09/17 08:12 09:25 13:26 BUN 34 H Creatinine 1.3 H Creat Clearance w eGFR 42.22 POC Glucometer [phone] Random Glucose 363 H* Cholesterol 180 Total LDL Cholesterol 80 HDL Cholesterol 72 H plan bgm qid novolog insulin doses levemir am dose avoid night time for somogie effects
[2017-12-10] MEDS: INSULIN SLIDING SCALE (NOVOLOG) 1 VIAL SQ SCH ×2 (06:14→11:30)
[2017-12-10] MEDS ORDERED: INSULIN (NOVOLOG) ASPART 100 UNITS/ML 10ML VIAL ONE (06:30)
[2017-12-10] MEDS ORDERED: INSULIN DETEMIR 100 UNITS/ML MDV SQ SCH (07:00)
[2017-12-10 07:36] LABS: BASO % 0.9 % (0-2.0); EOS % 1.3 % (0-4.5); HEMATOCRIT 31.5 % (32.4-45.2); HEMOGLOBIN 11.1 GM/dL (10.7-15.3); LYMPH % 22.6 % (8-40); MCH 32.7 pg (25.7-33.7); MCHC 35.2 g/dl (32.0-36.0); MEAN PLT VOLUME 10.7 fl (7.5-11.1); MONO % 9.4 % (3.8-10.2); NEUT % 65.8 % (42.8-82.8); PLATELET COUNT 161 K/MM3 (134-434); RBC 3.39 M/mm3 (3.60-5.2); RDW 12.9 % (11.6-15.6); WHITE BLOOD COUNT 3.4 K/mm3 (4.0-10.0)
[2017-12-10 08:45] LABS: ALBUMIN 3.2 g/dl (3.4-5.0); ANION GAP 8 (8-16); BLOOD UREA NITROGEN 17 mg/dL (7-18); CALCIUM 8.3 mg/dL (8.5-10.1); CHLORIDE 105 mmol/L (98-107); CO2 27 mmol/L (21-32); POTASSIUM 3.7 mmol/L (3.5-5.1); SODIUM 140 mmol/L (136-145)
[2017-12-10 08:52] LABS: ALK PHOS 393 U/L (45-117); BILIRUBIN,TOTAL 0.3 mg/dL (0.2-1.0); CHOLESTEROL 202 mg/dL (50-200); CREATININE 0.7 mg/dL (0.55-1.02); GLUCOSE,RANDOM 199 mg/dL (74-106); HDL CHOLESTEROL 68 mg/dL (40-60); LDL CHOLESTEROL (ONLY SJRH) 96 mg/dL (5-100); PHOSPHOROUS 2.6 mg/dL (2.5-4.9); SGOT/AST 66 U/L (15-37); SGPT/ALT 100 U/L (12-78); TOT PROT 6.1 g/dl (6.4-8.2); TRIGLYCERIDES 255 mg/dL (35-160)
--- NOTE | 2017-12-10 09:35 | CONSULT ---
Consult - text type - Consultation Consultation Note: Neurology History of Present Illness: The patient is a 57F with a PMH of HTN and DM who presents to the ER after having an episode of hypoglycemia. The patient stated that she woke up around 0600 and felt shaky with slurred speech on morning of admission. She stated that she's had episodes of hypoglycemia in the past but without slurred speech. She sat up in bed and checked her BG and it was 66. She ate a sandwich and drank orange juice and felt better . EMS had 108 BG then repeat was 227. She states her symptoms have completely resolved since then. She was not a TPA candidate and was admitted for further evaluation. Initial CT without acute changes, mild volume loss noted. Also had Carotid dopplers done which I reviewed and showed R ICA 50-69% stensosis. Will defer to PCP regarding further mgmt and if they would like to have vascular involved. Discussed with patient as well. She is on daily ASA 81mg. Also on losartan for BP, goal < 130/80 as outpatient. Has metal in her leg and not likely to have MRI. Will order repeat CT head to rule out CVA which seems less likely to be etiology. History Source: Patient - Past Medical History Cardiovascular: Yes: HTN Endocrine: Yes: Diabetes Mellitus - Past Surgical History Additional Past Surgical History: has a titanium isauro on leg - Smoking History Smoking history: Former smoker Have you smoked in the past 12 months: No If you are a former smoker, when did you quit?: 25 years ago - Alcohol/Substance Use Hx Alcohol Use: Yes (socially) - Social History History of Recent Travel: No Home Medications - Allergies Allergies/Adverse Reactions: Allergies Allergy/AdvReac Type Severity Reaction Status Date / Time No Known Allergies Allergy Verified 12/09/17 07:45 - Home Medications Home Medications: Ambulatory Orders Insulin Glargine,Hum.rec.anlog [Lantus Solostar PEN (NF)] 11 units SQ HS Insulin Lispro [Humalog] 0 unit SQ AC 04/25/17 Losartan Potassium 25 mg PO DAILY 12/09/17 Review of Systems - Review of Systems Constitutional: reports: No Symptoms Eyes: reports: No Symptoms HENT: reports: No Symptoms Neck: reports: No Symptoms Cardiovascular: reports: No Symptoms Respiratory: reports: No Symptoms Gastrointestinal: reports: No Symptoms Physical Examination Vital Signs: Vital Signs Temperature 97.7 F 12/09/17 07:45 Pulse Rate 99 H 12/09/17 07:45 Respiratory Rate 16 12/09/17 07:45 Blood Pressure 174/79 12/09/17 07:45 O2 Sat by Pulse Oximetry (%) 98 12/09/17 08:26 Constitutional: Yes: Anxious Eyes: Yes: EOM Intact HENT: Yes: Normocephalic Neck: Yes: Trachea Midline Cardiovascular: Yes: Regular Rate and Rhythm Respiratory: Yes: CTA Bilaterally Gastrointestinal: Yes: Normal Bowel Sounds Renal/: Yes: WNL Musculoskeletal: Yes: WNL Extremities: Yes: WNL Neurological: Yes: Alert, Oriented, CN intact, sensory normal, strength equal b/ l, finger to nose normal, gait without ataxia CBCD WBC 3.4 K/mm3 (4.0-10.0) L D 12/10/17 07:04 RBC 3.39 M/mm3 (3.60-5.2) L 12/10/17 07:04 Hgb 11.1 GM/dL (10.7-15.3) 12/10/17 07:04 Hct 31.5 % (32.4-45.2) L 12/10/17 07:04 MCV 93.0 fl (80-96) 12/10/17 07:04 MCHC 35.2 g/dl (32.0-36.0) 12/10/17 07:04 RDW 12.9 % (11.6-15.6) 12/10/17 07:04 Plt Count 161 K/MM3 (134-434) 12/10/17 07:04 MPV 10.7 fl (7.5-11.1) 12/10/17 07:04 CMP Sodium 140 mmol/L (136-145) 12/10/17 07:04 Potassium 3.7 mmol/L (3.5-5.1) 12/10/17 07:04 Chloride 105 mmol/L (98-107) 12/10/17 07:04 Carbon Dioxide 27 mmol/L (21-32) 12/10/17 07:04 Anion Gap 8 (8-16) 12/10/17 07:04 BUN 17 mg/dL (7-18) 12/10/17 07:04 Creatinine 0.7 mg/dL (0.55-1.02) 12/10/17 07:04 Creat Clearance w eGFR > 60 (>60) 12/10/17 07:04 Calcium 8.3 mg/dL (8.5-10.1) L 12/10/17 07:04 Total Bilirubin 0.3 mg/dL (0.2-1.0) 12/10/17 07:04 AST 66 U/L (15-37) H 12/10/17 07:04 ALT 100 U/L (12-78) H 12/10/17 07:04 Alkaline Phosphatase 393 U/L (45-117) H 12/10/17 07:04 Total Protein 6.1 g/dl (6.4-8.2) L 12/10/17 07:04 Albumin 3.2 g/dl (3.4-5.0) L 12/10/17 07:[address] head reviewed Carotid reviewed Plan: 57F with a PMH of HTN and DM who presents to the ER after having an episode of hypoglycemia. The patient stated that she woke up around 0600 and felt shaky with slurred speech on morning of admission. She stated that she's had episodes of hypoglycemia in the past but without slurred speech. She sat up in bed and checked her BG and it was 66. She ate a sandwich and drank orange juice and felt better . EMS had 108 BG then repeat was 227. She states her symptoms have completely resolved since then. She was not a TPA candidate and was admitted for further evaluation. Initial CT without acute changes, mild volume loss noted. Also had Carotid dopplers done which I reviewed and showed R ICA 50-69% stensosis. Will defer to PCP regarding further mgmt and if they would like to have vascular involved. Discussed with patient as well. She is on daily ASA 81mg, can be continued. Also on losartan for BP, goal < 130/[address] head, cannot have MRI 2/2 metal Monitor glucose, maintain euglycemic levels Goal LDL < 100 Ambulating for DVT ppx Outpatient follow up discussed
[2017-12-10] MEDS: LOSARTAN POTASSIUM 50 MG TABLET (FP) PO SCH (10:10)
[2017-12-10] MEDS: HEPARIN NA (PORCINE) 5,000 UNITS/ML 1ML VIAL SQ SCH (10:10)
--- NOTE | 2017-12-10 11:40 | DS ---
Physical Examination Vital Signs: Vital Signs Temperature 98.7 F 12/10/17 09:19 Pulse Rate 90 12/10/17 09:19 Respiratory Rate 18 12/10/17 09:19 Blood Pressure 155/74 12/10/17 09:19 O2 Sat by Pulse Oximetry (%) 99 12/10/17 09:19 Findings/Remarks: AWAKE ALERT NAD FEELS GOOD Constitutional: Yes: No Distress Eyes: Yes: WNL HENT: Yes: WNL Neck: Yes: WNL Cardiovascular: Yes: WNL Respiratory: Yes: WNL Gastrointestinal: Yes: WNL Renal/: Yes: WNL Musculoskeletal: Yes: WNL Extremities: Yes: WNL Edema: No Peripheral Pulses WNL: Yes Integumentary: Yes: WNL Wound/Incision: Yes: Clean/Dry Neurological: Yes: WNL ...Motor Strength: WNL Psychiatric: Yes: WNL Labs: CBC, BMP 12/10/17 07:04 12/10/17 07:04 Discharge Summary Reason For Visit: TRANSIENT CEREBRAL ISCHEMIA Current Active Problems Diabetes (Acute) HTN (hypertension) (Acute) TIA (transient ischemic attack) (Acute) Procedures: Principal: CT HEAD Hospital Course: NOT A TIA, LIKELY HYPOGLYCEMIA ALONE, DISCUSSED WHAT TO DO CHECK BGM REGURLY TO SEE ME NEXT WEEK Condition: Stable - Instructions Diet, Activity, Other Instructions: ADA SEE DR THIBODEAUX 1 WEEK [phone] [id number] ERUM LUNA - Home Medications Comprehensive Discharge Medication List: Ambulatory Orders Insulin Glargine,Hum.rec.anlog [Lantus Solostar PEN -] 11 units SQ HS 04/25/17 Insulin Lispro [Humalog] 0 unit SQ AC 04/25/17 Losartan Potassium 25 mg PO DAILY 12/09/17
[2017-12-10 14:42] VITALS: BP 153/83; PULSE 91; TEMP 98.3
== END 2017-12-10 15:05 | disposition home or self-care (01) ==
LOC: JER 07:32 → JERBED 12:17 → J4W 18:55
PROVIDERS: ADMIT Family Medicine; ATTEND Family Medicine
PROC: 3E0337Z Introduction of Electrolytic and Water Balance Substance into Peripheral Vein, Percutaneous Approach (ICD-10-PCS; principal; 2017-12-09)
PROC: 3E013VG Introduction of Insulin into Subcutaneous Tissue, Percutaneous Approach (ICD-10-PCS; 2017-12-09)
DX: G45.9 Transient cerebral ischemic attack, unspecified (principal); E11.649 Type 2 diabetes mellitus with hypoglycemia without coma; Z79.4 Long term (current) use of insulin; I10 Essential (primary) hypertension; Z87.891 Personal history of nicotine dependence
CPT/HCPCS: 36415; 70450-TC; 76705-TC; 80053; 80061; 81003; 81015; 82465; 82550; 82962; 83036; 83718; 83721; 83735; 84100; 84478; 84484; 85025; 85610; 86850; 86900; 86901; 93005; 93010; 93880-TC; 96360; 96361; 96372; 99284-25; G0378; J1644; J7030

== ENCOUNTER 2018-11-06 14:15 | Emergency (ER) | payer OTHER ==
[2018-11-06 14:30] VITALS: BP 208/105; PULSE 97; TEMP 98.2; BMI 24.0
[2018-11-06] MEDS ORDERED: metoPROLOL SUCCINATE 25 MG TAB.SR.24H (FP) PO ONE (14:30)
--- NOTE | 2018-11-06 14:30 | PDOC ---
Rapid Medical Evaluation Chief Complaint: Eye Problem Time Seen by Provider: 11/06/18 14:26 Medical Evaluation: Allergies Allergy/AdvReac Type Severity Reaction Status Date / Time No Known Allergies Allergy Verified 11/06/18 14:26 11/06/18 14:29 I have performed a brief in-person evaluation of this patient. The patient presents with a chief complaint of:R eye redness x 2 hours Pertinent physical exam findings:R eye hemorrhage I have ordered the following:Metoprolol The patient will proceed to the ED for further evaluation. Discharge Disposition - Diagnosis HTN (hypertension), Subconjunctival bleed - Referrals - Patient Instructions - Post Discharge Activity
== END 2018-11-06 15:15 | disposition home or self-care (01) ==
LOC: JER 14:15
DX: H11.31 Conjunctival hemorrhage, right eye (principal); I10 Essential (primary) hypertension
CPT/HCPCS: 99281-25

== ENCOUNTER 2019-07-24 06:16 | Emergency (ER) | payer OTHER ==
[2019-07-24 06:37] VITALS: BMI 25.7
[2019-07-24] MEDS ORDERED: LACTATED RINGERS SOLUTION 1000 ML INFUS.BAG IV ONE (07:21)
[2019-07-24] MEDS ORDERED: SODIUM CHLORIDE 0.9% 500 ML INFUS.BAG IV ONE ×2 (07:29→08:31)
[2019-07-24] MEDS ORDERED: ACETAMINOPHEN 325 MG TABLET (FP) PO ONE (07:44)
--- NOTE | 2019-07-24 07:45 | PDOC ---
History of Present Illness - General Chief Complaint: Blood Sugar Problem Stated Complaint: PAIN, DIABETIC Time Seen by Provider: 07/24/19 07:16 History Source: Patient, Old Records Exam Limitations: No Limitations - History of Present Illness Initial Comments: HPI: 59 y/o female presenting to [facility] complaining of diffuse body aches and hyperglycemia since approx. 1am this morning. Pt reports the pain woke her from sleep, which prompted her to measure her blood sugar - found to be above 500. Denies fevers, chills, or other infectious symptoms. Pt has a h/o of diabetes managed with Admelog on a sliding scale and Basaglar at night time. Reports using her insulin as prescribed. Home BGLs have been in the 180s, which is her normal trend. No recent changes in insulin regimen. Started taking Nortriptyline approx. 1 week ago for diabetic neuropathy. Medical Hx: - Diabetes - HTN - Diabetic neuropathy to lower extremities Surgical Hx: - S/p repair of open R tib/fib repair at [facility] Review of Systems: In addition to that documented in the HPI above, the additional ROS was obtained : Constitutional- Denies fevers or chills Head- Denies vision changes ENMT- Denies sore throat CV- Denies chest pain Resp- Denies SOB GI- Denies vomiting or diarrhea - Denies painful urination MSK- Denies recent trauma Skin- Denies new rashes Neuro- Denies new numbness or tingling or weakness Endocrine- Denies polyuria Heme- Denies bleeding or bruising Physical Examination: Vital signs reviewed. Constitutional- Well-developed, well-nourished adult female in no acute distress or obvious discomfort. Found semi-fowlers on hospital bed. Answered all questions appropriately and completely. Head- Normocephalic. No obvious external signs of trauma. Eyes- Sclerae white. Conjunctiva moist and not injected. Throat- Oral cavity and pharynx normal. No inflammation, swelling, exudate, or lesions. Teeth and gingiva in good general condition. Neck- Supple, trachea is midline. Cardiovascular / Chest- Regular rate and regular rhythm. No murmur, rubs, clicks , or gallops. Peripheral pulses- radial pulses full. No pretibial edema. Respiratory- Breathing unlabored. Equal chest rise and fall. Clear to auscultation bilaterally. No stridor, no wheezing, no rhonchi. Gastrointestinal- abdomen is soft, non-tender, non-distended. No overlying skin lesions or obvious signs of trauma. Neuro- Alert and oriented x4. Moving all four extremities spontaneously. Skin- Warm, dry, and intact. No bruising, rashes, or other lesions. Psych- Affect- appropriate. Mood- normal. Speech was non-labored, non- pressured. MDM: *Reviewed nursing notes and and prior visit documentation (if available). 59 y/o female presenting with diffuse body aches and hyperglycemia. No additional infectious symptoms endorsed. Complaint with insulin therapy w/ addition of Nortriptyline 1 week ago. Afebrile. Vitals remarkable for hypertension without tachycardia. Blood pressure tended downward without intervention in the department. Physical exam as described above. CMP unremarkable to elevated anion gap. Low suspicion for DKA. Ordered Tylenol and Lidoderm patch for symptom improvement. Ordered 10 units of Insulin for hyperglycemia. EKG unremarkable for ischemic findings. Troponin not elevated. Will not repeat troponin as symptoms started >3 hours ago. Low suspicion for ACS. ED Attending discussed results, follow up instructions, and return precautions with the pt. Mehdi Wolff M.D., PGY2 Emergency Medicine Resident Past History - Past Medical History Allergies/Adverse Reactions: Allergies Allergy/AdvReac Type Severity Reaction Status Date / Time No Known Allergies Allergy Verified 06/03/19 12:22 Home Medications: Ambulatory Orders Insulin Glargine,Hum.rec.anlog [Lantus Solostar PEN -] 11 units SQ HS 04/25/17 Insulin Lispro [Humalog] 0 unit SQ AC 04/25/17 Losartan Potassium 25 mg PO DAILY 12/09/17 Nortriptyline HCl [Pamelor -] 25 mg PO DAILY 07/24/19 Anemia: No Asthma: No Cancer: No Cardiac Disorders: No CVA: No COPD: No DVT: No Dementia: No Diabetes: Yes (DIABETIC NEUROPATHY) Dialysis: No GI Disorders: No Disorders: No HTN: Yes Hypercholesterolemia: No Kidney Stones: No Liver Disease: No Psychiatric Problems: No Seizures: No Thyroid Disease: No Lung CA: No - Surgical History Abdominal Surgery: No Appendectomy: No Cardiac Surgery: No Cholecystectomy: No Gastric Stapling: No GI Surgery: No Lung Surgery: No Neurologic Surgery: No Orthopedic Surgery: Yes (RIGHT LEG) - Immunization History Immunization Up to Date: Yes - Psycho Social/Smoking Cessation Hx Smoking History: Former smoker Have you smoked in the past 12 months: No If you are a former smoker, when did you quit?: 25 YEARS AGO Information on smoking cessation initiated: No Hx Alcohol Use: No (SOCIAL) Drug/Substance Use Hx: No Substance Use Type: None Hx Substance Use Treatment: No *Physical Exam - Vital Signs Last Vital Signs Temp Pulse Resp BP Pulse Ox 97.6 F 102 H 20 186/89 H 100 07/24/19 07:10 07/24/19 07:10 07/24/19 07:10 07/24/19 07:10 07/24/19 07:10 ED Treatment Course - LABORATORY CBC & Chemistry Diagram: 07/24/19 07:30 07/24/19 07:30 - ADDITIONAL ORDERS Additional order review: Laboratory Results 07/24/19 06:26 POC Glucometer 499 07/24/19 06:26 POC Glucometer 499 - Medications Given in the ED: ED Medications Discontinued Medications Generic Name Dose Route Start Last Admin Trade Name Soraya PRN Reason Stop Dose Admin Sodium Chloride 1,000 ml 07/24/19 07:29 07/24/19 07:35 Normal Saline - IV 07/24/19 07:30 1,000 ml ONCE ONE Administration Discharge - Discharge Information Problems reviewed: Yes Clinical Impression/Diagnosis: Diabetes Qualifiers: Diabetes mellitus type: type 2 Diabetes mellitus terminal manager insulin use: with terminal manager use Diabetes mellitus complication status: with hyperglycemia Qualified Code(s): E11.65 - Type 2 diabetes mellitus with hyperglycemia; Z79.4 - watermelon inspector (current) use of insulin HTN (hypertension) Qualifiers: Hypertension type: unspecified Qualified Code(s): I10 - Essential (primary) hypertension Condition: Good Disposition: HOME - Admission No - Follow up/Referral Referrals: Jade Rojas MD [Primary Care Provider] - - Patient Discharge Instructions Patient Printed Discharge Instructions: DI for Hyperglycemia -- Adult Additional Instructions: You presented to the emergency department with an elevated blood sugar reading. Your blood tests reveal that your blood sugar was high, but you are not in diabetic ketoacidosis. The remainder of your labs were normal. Your blood pressure was elevated today in the emergency department. This is not likely to be the cause of your symptoms. However, you should discuss your blood pressure with your primary care doctor. It may be time to change or restart your medication. Please continue to take all of your medications as prescribed at home. Follow- up with your primary care doctor within 1 to 2 days. Return to the emergency department if you have any new, worsening or concerning symptoms. We hope you feel better soon! Print Language: SWEDISH - Post Discharge Activity
[2019-07-24] MEDS ORDERED: ACETAMINOPHEN 325 MG TABLET (FP) ONE (08:02)
[2019-07-24 08:03] LABS: BASO % 1.3 % (0-2.0); HEMATOCRIT 37.4 % (32.4-45.2); HEMOGLOBIN 12.5 GM/dL (10.7-15.3); LYMPH % 10.8 % (8-40); MCH 30.9 pg (25.7-33.7); MCHC 33.4 g/dl (32.0-36.0); MEAN CELL VOLUME 92.4 fl (80-96); MEAN PLT VOLUME 10.5 fl (7.5-11.1); MONO % 6.5 % (3.8-10.2); NEUT % 80.4 % (42.8-82.8); PLATELET COUNT 173 K/MM3 (134-434); RBC 4.04 M/mm3 (3.60-5.2); RDW 12.7 % (11.6-15.6); WHITE BLOOD COUNT 6.7 K/mm3 (4.0-10.0)
[2019-07-24 08:25] LABS: ALBUMIN 3.6 g/dl (3.4-5.0); BILIRUBIN,TOTAL 0.4 mg/dL (0.2-1); BLOOD UREA NITROGEN 13.3 mg/dL (7-18); CALCIUM 8.9 mg/dL (8.5-10.1); CREATININE 0.9 mg/dL (0.55-1.3); POTASSIUM 5.2 mmol/L (3.5-5.1); TOT PROT 7.1 g/dl (6.4-8.2)
[2019-07-24] MEDS ORDERED: LIDOCAINE 5% TOPICAL PATCH TP ONE (08:30)
[2019-07-24] MEDS ORDERED: LIDOCAINE 5% TOPICAL PATCH ONE (08:32)
[2019-07-24 08:37] LABS: HYALINE CASTS 0 /lpf (0-8); URINE APPEARANCE CLEAR; URINE BACTERIA 0.7 /hpf (NEGATIVE); URINE BILIRUBIN NEGATIVE (NEGATIVE); URINE COLOR YELLOW; URINE GLUCOSE (UA) 3+ (NEGATIVE); URINE KETONE TRACE (NEGATIVE); URINE LEUK ESTERASE NEGATIVE (NEGATIVE); URINE NITRITE NEGATIVE (NEGATIVE); URINE PROTEIN 1+ (NEGATIVE); URINE RBC 2 /hpf (0-4); URINE UROBILINOGEN 0.2 mg/dL (0.2-1.0); URINE WBC 1 /hpf (0-5)
[2019-07-24] MEDS ORDERED: INSULIN REGULAR HUMAN 100 UNITS/ML *VIAL SQ ONE (09:27)
--- NOTE | 2019-07-24 09:33 | PDOC ---
Documentation entered by Balbina Mallory SCRIBE, acting as scribe for Shyla Moreno MD. Shyla Moreno MD: This documentation has been prepared by the Mohamud rowan Adrianna, SCRIBE, under my direction and personally reviewed by me in its entirety. I confirm that the documentation accurately reflects all work, treatment, procedures, and medical decision making performed by me. Attending Attestation - Resident Resident Name: Mehdi Wolff - ED Attending Attestation I have performed the following: I have examined & evaluated the patient, The case was reviewed & discussed with the resident, I agree w/resident's findings & plan, Exceptions are as noted - HPI HPI: 07/24/19 09:28 Agree with resident HPI - Physicial Exam PE: 07/24/19 09:29 Agree with resident exam - Medical Decision Making 07/24/19 09:30 59-year-old female with a history of insulin-dependent diabetes, hypertension presents to the emergency department with body aches and elevated blood glucose reading at home. Patient denies any other symptoms. Vitals remarkable for elevated blood pressure, however patient took her losartan just prior to presentation to the emergency department. Initially hypoxic to 94%, however on repeat without intervention patient is satting 100% on room air with a good waveform on multiple checks. Exam is unremarkable. Labs with non-anion gap hyperglycemia to 450, otherwise within normal limits. After fluids patient reports she is asymptomatic and feeling much better she has no focal symptoms. She is eager for discharge home. We will give her 10 units of regular insulin subQ, and likely discharge. 07/24/19 10:45 FS down to 321, pt continues to be asympomatic, feeling better BP downtrending as well Pt clinically stable for DC home with close PMD f/u I discussed the physical exam findings, ancillary test results and final diagnoses with the patient. I answered all of the patient's questions. The patient was satisfied with the care received and felt comfortable with the discharge plan and treatment plan. The patient will call their primary care physician within 24 hours to arrange follow-up and will return to the Emergency Department with any new, persistent or worsening symptoms. Heart Score/ECG Review #1 07/24/19 10:52 Twelve-lead EKG was performed and reviewed by me. Normal sinus rhythm, rate 97. Normal axis and intervals. No ST elevations or T wave inversions
[2019-07-24 10:23] VITALS: BP 178/91; PULSE 98; TEMP 98.1
[2019-07-24] MEDS ORDERED: LIDOCAINE PATCH REMOVAL MC SCH (22:00)
--- NOTE | 2019-07-25 20:10 | EKG ---
Test Reason : Blood Pressure : / mmHG Vent. Rate : 097 BPM Atrial Rate : 097 BPM P-R Int : 150 ms QRS Dur : 080 ms QT Int : 366 ms P-R-T Axes : 057 018 053 degrees QTc Int : 464 ms NORMAL SINUS RHYTHM SEPTAL INFARCT (CITED ON OR BEFORE 09-DEC-2017) ABNORMAL ECG WHEN COMPARED WITH ECG OF 09-DEC-2017 10:21, NONSPECIFIC T WAVE ABNORMALITY NO LONGER EVIDENT IN ANTERIOR LEADS Confirmed by LILIA TONEY MD ([id number]) on 07/25/2019 8:09:56 PM Referred By: Confirmed By:LILIA TONEY MD
== END 2019-07-24 10:54 | disposition home or self-care (01) ==
LOC: JER 06:16
PROC: 3E013VG Introduction of Insulin into Subcutaneous Tissue, Percutaneous Approach (ICD-10-PCS; principal; 2019-07-24)
DX: E11.65 Type 2 diabetes mellitus with hyperglycemia (principal); E11.42 Type 2 diabetes mellitus with diabetic polyneuropathy; Z79.4 Long term (current) use of insulin; I10 Essential (primary) hypertension
CPT/HCPCS: 36415; 80053; 81003; 82010; 82550; 82962; 83690; 84484; 85025; 87086; 93005; 93010; 96372; 99285-25